=== PATIENT | male | born 1970 | race Hispanic/Latino ===

== ENCOUNTER 2017-05-14 23:51 | Emergency (ER) | payer MEDICARE ==
[2017-05-15 01:45] LABS: Urine Drugs of Abuse Note Disclamer
[2017-05-15 01:52] LABS: Basophils % (Auto) 1.2 % (0.0-1.8); Eosinophils % (Auto) 4.5 % (0.0-4.3); Hematocrit 41.4 % (35.5-45.6); Hemoglobin 14.3 gm/dl (11.8-15.2); Mean Corpuscular HGB Conc 34 % (32-34); Mean Corpuscular Hemoglobin 32 pg (28-32); Mean Corpuscular Volume 94 fl (84-94); Platelet Count 255 K/mm3 (140-440); Red Blood Count 4.42 M/mm3 (3.65-5.03); Red Cell Distribution Width 14.1 % (13.2-15.2); White Blood Count 10.7 K/mm3 (4.5-11.0)
[2017-05-15 02:08] LABS: Anion Gap 20 mmol/L; BUN/Creatinine Ratio 13; Blood Urea Nitrogen 9 mg/dL (9-20); Calcium 9.2 mg/dL (8.4-10.2); Carbon Dioxide 23 mmol/L (22-30); Chloride 104.5 mmol/L (98-107); Glucose 88 mg/dL (75-100); Potassium 3.7 mmol/L (3.6-5.0); Sodium 144 mmol/L (137-145)
--- NOTE | 2017-05-15 02:21 | Emergency Department Report ---
ED Psych HPI - General Chief Complaint: Psych Stated Complaint: MH EVALUATION Time Seen by Provider: 05/15/17 01:41 Source: patient, police Mode of arrival: Ambulatory Limitations: No Limitations - History of Present Illness Initial Comments: 47-year-old male with a past medical history of GERD, hypertension, and depression presents to the hospital after being brought in by the Police Department for making multiple superficial lacerations to chest and abdomen. Patient cut himself with a knife. He states he has received a tetanus within 10 years. Patient denies wanting to kill himself but states he was depressed. He is not currently taking any psychiatric medication. Previous medical records suggest patient has a history of alcohol abuse per patient denies. He denies homicidal ideation, auditory hallucinations, or visual hallucinations. He was initially uncooperative and trying to leave because he felt like nothing was wound him. However, he has calmed down and is cooperative with my exam. He states he takes 9 different medications for blood pressure and his heart however, he cannot recall any of the medications at this time. - Related Data Previous Rx's Medication Instructions Recorded Last Taken Type FLUoxetine [PROzac] 20 mg PO QDAY #30 capsule 12/26/13 Unknown Rx Folic Acid [Folvite] 1 mg PO QDAY #30 tablet 12/26/13 Unknown Rx LORazepam [Ativan] 1 mg PO TID PRN #14 tablet 12/26/13 Unknown Rx Magnesium Oxide [Mag-Ox] 400 mg PO QDAY #30 tablet 12/26/13 Unknown Rx Potassium Chloride [K-Dur] 30 meq PO QDAY 14 Days tablet 12/26/13 Unknown Rx Thiamine [Vitamin B-1] 100 mg PO QDAY #30 tablet 12/26/13 Unknown Rx Allergies Allergy/AdvReac Type Severity Reaction Status Date / Time No Known Allergies Allergy Unverified 10/07/13 13:43 ED Review of Systems ROS: Stated complaint: MH EVALUATION Other details as noted in HPI Comment: All other systems reviewed and negative Other: Constitutional: No fevers chills Eyes: No eye pain visual changes ENT: No ear pain or throat pain Neck: Denies pain Respiratory: Denies cough wheezing shortness of breath Cardiovascular: Denies chest pain, palpitations, syncope GI: Denies abdominal pain, nausea, vomiting, diarrhea : Denies dysuria Musculoskeletal: Denies back pain Skin: As per HPI Neurologic: Denies headache, numbness, weakness Psychiatric: as per hpi ED Past Medical Hx - Past Medical History Previous Medical History?: Yes Hx Hypertension: Yes (2009) Hx Congestive Heart Failure: No Hx Diabetes: No Hx GERD: Yes ("Anything I eat causes heartburn" sometimes i vomit because of this.) Hx Psychiatric Treatment: Yes (depression) Hx Asthma: No Hx COPD: No Hx HIV: No Additional medical history: Etoh abuse. Enlarged heart - Surgical History Past Surgical History?: Yes Additional Surgical History: Left knee sx - Social History Smoking Status: Heavy Tobacco Smoker - Medications Home Medications: Home Medications Medication Instructions Recorded Confirmed Last Taken Type FLUoxetine [PROzac] 20 mg PO QDAY #30 capsule 12/26/13 Unknown Rx Folic Acid [Folvite] 1 mg PO QDAY #30 tablet 12/26/13 Unknown Rx LORazepam [Ativan] 1 mg PO TID PRN #14 tablet 12/26/13 Unknown Rx Magnesium Oxide [Mag-Ox] 400 mg PO QDAY #30 tablet 12/26/13 Unknown Rx Potassium Chloride [K-Dur] 30 meq PO QDAY 14 Days tablet 12/26/13 Unknown Rx Thiamine [Vitamin B-1] 100 mg PO QDAY #30 tablet 12/26/13 Unknown Rx ED Physical Exam - General Limitations: No Limitations - Other Other exam information: General: No limitations Head exam: Atraumatic, normocephalic Eyes exam: Normal appearance, ENT: Moist mucous membrane, normal oropharynx Neck exam: Normal inspection, full range of motion, no meningismus nontender Respiratory exam: Clear to auscultation bilateral, no wheezes, rales, crackles Cardiovascular: Normal rate and rhythm, normal heart sounds Abdomen: Soft, nondistended, and nontender, with normal bowel sounds, no rebound, or guarding Extremity: Full range of motion normal inspection no deformity Back: Normal Inspection, full range of motion, no tenderness Neurologic: Alert, oriented x3, cranial nerves intact, no motor or sensory deficit Psychiatric: normal affect, normal mood Skin: Multiple superficial lacerations to chest wall ED Course Vital Signs 05/15/17 00:26 Temperature 98.8 F Pulse Rate 96 H Respiratory 18 Rate Blood Pressure 130/85 [Left] O2 Sat by Pulse 98 Oximetry ED Medical Decision Making - Lab Data Result diagrams: 05/15/17 01:10 05/15/17 01:10 Lab Results 05/15/17 05/15/17 05/15/17 Range/Units 01:10 01:10 01:10 WBC 10.7 (4.5-11.0) K/mm3 RBC 4.42 (3.65-5.03) M/mm3 Hgb 14.3 (11.8-15.2) gm/dl Hct 41.4 (35.5-45.6) % MCV 94 (84-94) fl MCH 32 (28-32) pg MCHC 34 (32-34) % RDW 14.1 (13.2-15.2) % Plt Count 255 (140-440) K/mm3 Lymph % (Auto) 31.1 (13.4-35.0) % [place] % (Auto) 5.6 (0.0-7.3) % Eos % (Auto) 4.5 H (0.0-4.3) % Baso % (Auto) 1.2 (0.0-1.8) % Lymph # 3.3 (1.2-5.4) K/mm3 [place] # 0.6 (0.0-0.8) K/mm3 Eos # 0.5 H (0.0-0.4) K/mm3 Baso # 0.1 (0.0-0.1) K/mm3 Seg Neutrophils % 57.6 (40.0-70.0) % Seg Neutrophils # 6.2 (1.8-7.7) K/mm3 Sodium 144 (137-145) mmol/L Potassium 3.7 (3.6-5.0) mmol/L Chloride 104.5 (98-107) mmol/L Carbon Dioxide 23 (22-30) mmol/L Anion Gap 20 mmol/L BUN 9 (9-20) mg/dL Creatinine 0.7 L (0.8-1.5) mg/dL Estimated GFR > 60 ml/min BUN/Creatinine Ratio 13 % Glucose 88 (75-100) mg/dL Calcium 9.2 (8.4-10.2) mg/dL Urine Color (Yellow) Urine Turbidity (Clear) Urine pH (5.0-7.0) Ur Specific [place] (1.003-1.030) Urine Protein (Negative) mg/dL Urine Glucose (UA) (Negative) mg/dL Urine Ketones (Negative) mg/dL Urine Blood (Negative) Urine Nitrite (Negative) Ur Reducing Substances Urine Bilirubin (Negative) Urine Ictotest Urine Urobilinogen (<2.0) mg/dL Ur Leukocyte Esterase (Negative) Urine WBC (Auto) (0.0-6.0) /HPF Urine RBC (Auto) (0.0-6.0) /HPF Hyaline Casts /LPF Urine Mucus /HPF Urine Opiates Screen Urine Methadone Screen Ur Barbiturates Screen Ur Phencyclidine Scrn Ur Amphetamines Screen U Benzodiazepines Scrn Urine Cocaine Screen U Marijuana (THC) Screen Drugs of Abuse Note Plasma/Serum Alcohol 0.13 H (0-0.07) gm% 05/15/17 05/15/17 Range/Units Unknown Unknown WBC (4.5-11.0) K/mm3 RBC (3.65-5.03) M/mm3 Hgb (11.8-15.2) gm/dl Hct (35.5-45.6) % MCV (84-94) fl MCH (28-32) pg MCHC (32-34) % RDW (13.2-15.2) % Plt Count (140-440) K/mm3 Lymph % (Auto) (13.4-35.0) % [place] % (Auto) (0.0-7.3) % Eos % (Auto) (0.0-4.3) % Baso % (Auto) (0.0-1.8) % Lymph # (1.2-5.4) K/mm3 [place] # (0.0-0.8) K/mm3 Eos # (0.0-0.4) K/mm3 Baso # (0.0-0.1) K/mm3 Seg Neutrophils % (40.0-70.0) % Seg Neutrophils # (1.8-7.7) K/mm3 Sodium (137-145) mmol/L Potassium (3.6-5.0) mmol/L Chloride (98-107) mmol/L Carbon Dioxide (22-30) mmol/L Anion Gap mmol/L BUN (9-20) mg/dL Creatinine (0.8-1.5) mg/dL Estimated GFR ml/min BUN/Creatinine Ratio % Glucose (75-100) mg/dL Calcium (8.4-10.2) mg/dL Urine Color Colorless (Yellow) Urine Turbidity Clear (Clear) Urine pH 5.0 (5.0-7.0) Ur Specific [place] 1.005 (1.003-1.030) Urine Protein <15 mg/dl (Negative) mg/dL Urine Glucose (UA) Negative (Negative) mg/dL Urine Ketones Negative (Negative) mg/dL Urine Blood Negative (Negative) Urine Nitrite Negative (Negative) Ur Reducing Substances Not Reportable Urine Bilirubin Negative (Negative) Urine Ictotest Not Reportable Urine Urobilinogen < 2.0 (<2.0) mg/dL Ur Leukocyte Esterase Negative (Negative) Urine WBC (Auto) 1.0 (0.0-6.0) /HPF Urine RBC (Auto) 2.0 (0.0-6.0) /HPF Hyaline Casts 7 /LPF Urine Mucus Few /HPF Urine Opiates Screen Presumptive negative Urine Methadone Screen Presumptive negative Ur Barbiturates Screen Presumptive negative Ur Phencyclidine Scrn Presumptive negative Ur Amphetamines Screen Presumptive negative U Benzodiazepines Scrn Presumptive negative Urine Cocaine Screen Presumptive negative U Marijuana (THC) Screen Presumptive negative Drugs of Abuse Note Disclamer Plasma/Serum Alcohol (0-0.07) gm% - Medical Decision Making 1013 and transfer forms signed. Patient pending psychiatric evaluation and is cleared for psychiatric - Differential Diagnosis depression, bipolar, substance abuse, suicidal ideation Critical Care Time: No Critical care attestation.: If time is entered above; I have spent that time in minutes in the direct care of this critically ill patient, excluding procedure time. ED Disposition Clinical Impression: Self mutilating behavior, Depression, Medical clearance for psychiatric admission, Superficial laceration Disposition: [id number]/TX-[id number] PSY HOSP/PSY UNIT Is pt being admited?: No Condition: Stable Time of Disposition: 06:05 (awaiting acceptance)
[2017-05-15 02:38] LABS: Mucus,Urine FEW /HPF
[2017-05-15 02:43] LABS: Bilirubin,Urine Negative (Negative); Blood,Urine Negative (Negative); Ketones,Urine Negative (Negative)
[2017-05-15 02:44] LABS: Leukocyte Esterase,Urine Negative (Negative); Nitrite,Urine Negative (Negative); Protein,Urine <15 mg/dL mg/dL (Negative); Urobilinogen,Urine < 2.0 mg/dL (<2.0)
[2017-05-15] MEDS ORDERED: ATIVAN PO PRN ×2 (06:04)
[2017-05-15 09:28] VITALS: BP 142/76
--- NOTE | 2017-05-15 12:21 | Consultation ---
History of Present Illness - Reason for Consult Consult date: 05/15/17 Reason for consult: Mental Health Evaluation Requesting physician: EULA TOSCANO - Chief Complaint Chief complaint: "I don;t want to discuss what happened" - History of Present Psychiatric Illness 47-year-old male with a past medical history of GERD, hypertension, and depression presents to the hospital after being brought in by the Police Department for making multiple superficial lacerations to chest and abdomen. Today patient is irritable and evasive during the assessment. He would not answer much of the questions asked of him. He did admit to cutting himself on his chest/abdomen. He would not confirm or deny SI's when asked, but is adamant about not wanting live. He stated, "I don't want to talk anymore." Medications and Allergies Allergies Allergy/AdvReac Type Severity Reaction Status Date / Time No Known Allergies Allergy Unverified 10/07/13 13:43 Home Medications Medication Instructions Recorded Confirmed Last Taken Type FLUoxetine [PROzac] 20 mg PO QDAY #30 capsule 12/26/13 Unknown Rx Folic Acid [Folvite] 1 mg PO QDAY #30 tablet 12/26/13 Unknown Rx LORazepam [Ativan] 1 mg PO TID PRN #14 tablet 12/26/13 Unknown Rx Magnesium Oxide [Mag-Ox] 400 mg PO QDAY #30 tablet 12/26/13 Unknown Rx Potassium Chloride [K-Dur] 30 meq PO QDAY 14 Days tablet 12/26/13 Unknown Rx Thiamine [Vitamin B-1] 100 mg PO QDAY #30 tablet 12/26/13 Unknown Rx Past psychiatric history - Past Medical History Past Medical History: hypertension Past Surgical History: No surgical history - past Psychiatric treatment and history psychiatric treatment history: Unable to obtain psy hx and fam psy hx. - Social History Social history: Lives alone Mental Status Exam - Vital signs Last Vital Signs Temp 997 F H 05/15/17 09:26 Pulse 103 H 05/15/17 09:26 Resp 18 05/15/17 09:26 BP 142/76 05/15/17 09:26 Pulse Ox 98 05/15/17 00:26 - Exam Narrative exam: MSE: Appearance: irritable Behavior: regular eye contact Speech: regular rate and tone Mood: "depressed" Affect: congruent to mood Thought Process: circumstantial Thought Content: denies HI's and AVH's Motor Activity: sitting up in bed Cognition: A/O x3 Insight: poor Judgment: poor Results Result Diagrams: 05/15/17 01:10 05/15/17 01:10 Abnormal lab results 05/15/17 05/15/17 05/15/17 Range/Units 01:10 01:10 01:10 Eos % (Auto) 4.5 H (0.0-4.3) % Eos # 0.5 H (0.0-0.4) K/mm3 Creatinine 0.7 L (0.8-1.5) mg/dL Plasma/Serum Alcohol 0.13 H (0-0.07) gm% All other labs normal. Assessment and Plan Assessment and plan: Impression: Unspecified Mood DO. Alcohol Use DO. Today patient is irritable and evasive during the assessment. Alcohol serum 0.13 on admission. DDx: R/O Bipolar, MDD, R/O Alcohol Induced Mood DO Recommendation/Plan: Continue 1013 with placement to [facility] today.
== END 2017-05-15 09:15 ==
LOC: EEVIPCON 23:51 → ED 23:51
DX: S21.119A Laceration without foreign body of unspecified front wall of thorax without penetration into thoracic cavity, initial encounter (principal); S31.119A Laceration without foreign body of abdominal wall, unspecified quadrant without penetration into peritoneal cavity, initial encounter; F32.9 Major depressive disorder, single episode, unspecified; R46.89 Other symptoms and signs involving appearance and behavior; I10 Essential (primary) hypertension; K21.9 Gastro-esophageal reflux disease without esophagitis; F17.200 Nicotine dependence, unspecified, uncomplicated; X58.XXXA Exposure to other specified factors, initial encounter; Y93.89 Activity, other specified; Y92.89 Other specified places as the place of occurrence of the external cause; Y99.8 Other external cause status
CPT/HCPCS: 36415; 80048; 80307; 81001; 85025; 99285; G0480; 80320

== ENCOUNTER 2018-08-27 21:30 | Emergency (ER) | payer MEDICARE ==
[2018-08-27 21:45] VITALS: BP 118/81
--- NOTE | 2018-08-27 21:56 | Emergency Department Report ---
Blank Doc - Documentation Documentation: This is a 48-year-old male that presents with right knee pain s/p mechanical f all. This initial assessment/diagnostic orders/clinical plan/treatment(s) is/are subject to change based on patient's health status, clinical progression and re- assessment by fellow clinical providers in the ED. Further treatment and workup at subsequent clinical providers discretion. Patient/guardians urged not to elope from the ED as their condition may be serious if not clinically assessed a nd managed. Initial orders include: 1- Patient sent to [facility] for further evaluation and treatment 2- xray
--- NOTE | 2018-08-27 23:06 | XRay Report ---
PROCEDURE: RIGHT KNEE 3 VIEWS TECHNIQUE: RIGHT knee radiographs, AP, lateral, and sunrise views. CPT 53966 HISTORY: Pain COMPARISONS: None . FINDINGS: Fracture (s) and/or Dislocation(s): None . Alignment: Normal . Joint space(s): Normal . Soft tissues: Normal . Bone mineralization: Normal . Foreign bodies: None . IMPRESSION: Normal Examination . This document is electronically signed by Sammy Mccarthy MD., August 27 2018 11:04:43 PM ET
[2018-08-28] MEDS ORDERED: IBUPROFEN PO ONE (02:25)
--- NOTE | 2018-08-28 02:31 | Emergency Department Report ---
ED Fall HPI - General Chief Complaint: Extremity Injury, Lower Stated Complaint: KNEE INJURY Time Seen by Provider: 08/27/18 21:55 Source: patient, EMS Mode of arrival: Ambulatory - History of Present Illness Initial Comments: Pt presents to the ED with c/o a fall that occurred earlier today. he states he was riding his skateboard and fell off and fell onto his right knee. Pt was wearing knee pads. He has right knee pain. The patient is ambulatory with some pain. Pt denies any numbness or weakness. He denies any laceration/abrasion/skin tear. Pt does not report popping sensation or buckling. Pt denies any allergies to any medications. - Related Data Previous Rx's Medication Instructions Recorded Last Taken Type FLUoxetine [PROzac] 20 mg PO QDAY #30 capsule 12/26/13 Unknown Rx Folic Acid [Folvite] 1 mg PO QDAY #30 tablet 12/26/13 Unknown Rx LORazepam [Ativan] 1 mg PO TID PRN #14 tablet 12/26/13 Unknown Rx Magnesium Oxide [Mag-Ox] 400 mg PO QDAY #30 tablet 12/26/13 Unknown Rx Potassium Chloride [K-Dur] 30 meq PO QDAY 14 Days tablet 12/26/13 Unknown Rx Thiamine [Vitamin B-1] 100 mg PO QDAY #30 tablet 12/26/13 Unknown Rx Ibuprofen [Motrin 800 MG tab] 800 mg PO Q6HR PRN #20 tablet 08/28/18 Unknown Rx Allergies Allergy/AdvReac Type Severity Reaction Status Date / Time No Known Allergies Allergy Unverified 10/07/13 13:43 ED Review of Systems ROS: Stated complaint: KNEE INJURY Other details as noted in HPI Comment: All other systems reviewed and negative ED Past Medical Hx - Past Medical History Previous Medical History?: Yes Hx Hypertension: Yes (2010) Hx Heart Attack/AMI: Yes Hx Congestive Heart Failure: No Hx Diabetes: No Hx GERD: Yes Hx Psychiatric Treatment: Yes (depression) Hx Asthma: No Hx COPD: No Hx HIV: No Additional medical history: Etoh abuse. Enlarged heart - Surgical History Past Surgical History?: Yes Hx Coronary Stent: Yes Additional Surgical History: Left knee sx - Social History Smoking Status: Current Every Day Smoker Substance Use Type: None - Medications Home Medications: Home Medications Medication Instructions Recorded Confirmed Last Taken Type FLUoxetine [PROzac] 20 mg PO QDAY #30 capsule 12/26/13 Unknown Rx Folic Acid [Folvite] 1 mg PO QDAY #30 tablet 12/26/13 Unknown Rx LORazepam [Ativan] 1 mg PO TID PRN #14 tablet 12/26/13 Unknown Rx Magnesium Oxide [Mag-Ox] 400 mg PO QDAY #30 tablet 12/26/13 Unknown Rx Potassium Chloride [K-Dur] 30 meq PO QDAY 14 Days tablet 12/26/13 Unknown Rx Thiamine [Vitamin B-1] 100 mg PO QDAY #30 tablet 12/26/13 Unknown Rx Ibuprofen [Motrin 800 MG tab] 800 mg PO Q6HR PRN #20 tablet 08/28/18 Unknown Rx ED Physical Exam - General Limitations: No Limitations General appearance: alert, in no apparent distress - Head Head exam: Present: atraumatic, normocephalic - Eye Eye exam: Present: normal appearance - ENT ENT exam: Present: mucous membranes moist - Respiratory Respiratory exam: Absent: respiratory distress - Cardiovascular Cardiovascular Exam: Present: regular rate - Extremities Exam Extremities exam: Present: other (pt has no TTP of the right knee, no significant edema, no erythema, no ecchymosis, no abrasion/laceration, FROM of the right knee with some pain, no joint laxity, neurovascularly intact) - Neurological Exam Neurological exam: Present: alert, oriented X3 - Psychiatric Psychiatric exam: Present: normal affect, normal mood - Skin Skin exam: Present: warm, dry, intact ED Course Vital Signs 08/27/18 08/27/18 21:39 21:55 Temperature 98.3 F 98.3 F Pulse Rate 81 83 Respiratory 20 18 Rate Blood Pressure 118/81 118/81 O2 Sat by Pulse 97 98 Oximetry ED Medical Decision Making - Radiology Data Radiology results: report reviewed PROCEDURE: RIGHT KNEE 3 VIEWS TECHNIQUE: RIGHT knee radiographs, AP, lateral, and sunrise views. CPT 06345 HISTORY: Pain COMPARISONS: None . FINDINGS: Fracture (s) and/or Dislocation(s): None . Alignment: Normal . Joint space(s): Normal . Soft tissues: Normal . Bone mineralization: Normal . Foreign bodies: None . IMPRESSION: Normal Examination . This document is electronically signed by Sammy Mccarthy MD., August 27 2018 11:04:43 PM ET - Medical Decision Making Pt presents to the ED with c/o a fall that occurred earlier today. he states he was riding his skateboard and fell off and fell onto his right knee. Pt was wearing knee pads. He has right knee pain. The patient is ambulatory with some pain. Pt denies any numbness or weakness. Pt does not report popping sensation or buckling. Pt denies any allergies to any medications. No TTP of the right knee, no significant edema, no abrasions/lacerations, no joint laxity, neurovascularly intact. XR of the right knee with no acute process. Will give pt anti-inflammatory. Advised pt to use ice, rest, and elevation. Advised pt to follow up with his PCP in the next 2-3 days. May follow up with Dr. Dubon, orthopedic if continue to have knee pain. Return to the emergency room for any new or worsening symptoms. - Differential Diagnosis strain, fracture, dislocation Critical care attestation.: If time is entered above; I have spent that time in minutes in the direct care of this critically ill patient, excluding procedure time. ED Disposition Clinical Impression: Fall Qualifiers: Encounter type: initial encounter Qualified Code(s): W19.XXXA - Unspecified fall, initial encounter Right knee pain Qualifiers: Chronicity: acute Qualified Code(s): M25.561 - Pain in right knee Disposition: DC- TO HOME OR SELFCARE Is pt being admited?: No Does the pt Need Aspirin: No Condition: Stable Instructions: Arthralgia (ED) Additional Instructions: Please take medication as prescribed. Use ice, rest, and elevation. Follow up with your primary care doctor in the next 2-[address] days[address] Follow up with Dr. Dubon, orthopedic if continue to have knee pain. Return to the emergency room for any new or worsening symptoms. Prescriptions: Ibuprofen [Motrin 800 MG tab] 800 mg PO Q6HR PRN #20 tablet PRN Reason: Pain, Moderate (4-6) Referrals: ROCIO LOMELI MD [Primary Care Provider] - 2-3 Days CHAIM DUBON MD [Staff Physician] - as needed Time of Disposition: 02:32 Print Language: CITIZEN OF [place]
== END 2018-08-28 02:40 | disposition home or self-care (01) ==
LOC: ED 21:30
DX: M25.561 Pain in right knee (principal); I10 Essential (primary) hypertension; I25.2 Old myocardial infarction; K21.9 Gastro-esophageal reflux disease without esophagitis; F32.9 Major depressive disorder, single episode, unspecified; F17.200 Nicotine dependence, unspecified, uncomplicated